=== PATIENT | female | born 2000 | race Caucasian/White ===

== ENCOUNTER 2023-11-07 14:56 | Emergency (ER) | payer MEDICAID, SELFPAY ==
[2023-11-07] VITALS (7 sets, daily range): BP systolic 124–158; BP diastolic 72–91; PULSE 58–84; RESP 16–17; TEMP 36.8–37.2; O2SAT 95–100; BMI 28.5
--- NOTE | ~2023-11-07 | CT_ITS ---
EXAMINATION: CT HEAD WITHOUT CONTRAST CLINICAL INFORMATION: Dizziness, near syncope, numbness/tingling COMPARISON: None available. TECHNIQUE: Contiguous axial imaging was performed from the skull base to vertex without intravenous administration of contrast. This CT examination was performed using dose optimization techniques as appropriate, variously including the following: *Automated exposure control *Adjustment of mA and/or kV according to patient size (this includes techniques or standardized protocols for targeted exams where dose is matched to indication/reason for exam; i.e. extremities or head) *Use of iterative reconstruction technique DLP: 584 mGy-cm FINDINGS: No acute intracranial hemorrhage or infarct. The armstrong-white matter differentiation is preserved. No midline shift or hydrocephalus. No acute extra-axial fluid collections. The osseous structures are unremarkable. No orbital pathology. The paranasal sinuses and mastoid air cells are clear. CT/CT head/brain wo IV con IMPRESSION: No acute intracranial pathology.
--- NOTE | 2023-11-07 15:58 | ED_ITS ---
HPI - Headache General Chief Complaint: Headache Stated Complaint: dizziness/vertigo/valadez per ems Time Seen by Provider: 11/07/23 16:44 Source: patient and RN notes reviewed Mode of arrival: ambulatory Limitations: no limitations History of Present Illness HPI Narrative: This is a 22-year-old female presenting to the emergency department with complaints of vertigo like episode which occurred today. Patient states that while she was walking she suddenly developed a ?electric Jay in her head that occurred approximately 7 times and radiated into her arms and upper body. She states that since she was a teenager she has had similar episodes where she would start to lose her vision and lose track of time. Unclear whether not she would have syncopal episodes. She denies any recent head strike or head injury. Denies fevers, chills, chest pain, shortness of breath, abdominal pain, nausea, vomiting or diarrhea. She states that her symptoms today lasted for several minutes and resolved on its own. She states that she has been seen multiple times for similar symptoms in the past and was told that everything was okay however is concerned as she has never had a CT scan of her head before. Denies any family medical history regards to intracranial processes. Denies drug use. She endorses a slight headache. No vision changes. Denies any other complaints or concerns this time. MD elicited complaint: headache Onset (ago): year(s) Exacerbating factors: none Relieving factors: nothing Associated symptoms: lightheadedness Treatments prior to arrival: none Related Data Allergies Allergy/AdvReac Type Severity Reaction Status Date / Time No Known Allergies Allergy Unverified 05/04/20 18:26 Review of Systems 2 Review of Systems: Yes all other systems are reviewed and are negative Constitutional: Constitutional: Reports as per [facility] Social History Social History Advance Directives: No Advance Directives Information Provided: No Physical Exam 2 Vital Signs: Vital Signs: Last Vital Signs Temp 98.3 F 11/07/23 15:56 Pulse 58 11/07/23 17:19 Resp 16 11/07/23 15:56 BP 134/81 11/07/23 17:19 Pulse Ox 100 11/07/23 15:56 O2 Del Method Room Air 11/07/23 15:56 BMI result Body Mass Index 28.5 Const: General: cooperative, comfortable and no acute distress O rientation/consciousness: patient oriented x3 Limitations: no limitations HEENT: Head: Yes normal to inspection, Yes normocephalic and Yes atraumatic Ears: hearing grossly normal bilaterally General nose exam: Normal external nose present Face and sinus: Yes normal facial exam Mouth: Normal oral and palatal mucosa present, oropharynx normal and moist mucous membranes Throat: Yes posterior oropharynx normal Eyes: General: appearance normal, both eyes and all related structures E yelids: Yes eyelids normal Conjunctivae: conjunctivae normal Sclerae: s clerae normal Pupils: Equal, round and reactive pupils present EOM: EOMs intact bilaterally Neck: Neck: Yes normal visual inspection, Yes full ROM and Yes no lymphadenopathy Lymphatic: no lymphadenopathy noted Chest: Chest palpation & inspection: normal inspection of the chest Resp: Effort & Inspection: normal respiratory effort and able to speak in complete sentences Auscultation: clear to auscultation bilaterally, no crackles, no rales, no rhonchi and no wheezes Cardio: Rate: regular rate Rhythm: regular rhythm Heart sounds: S1 normal heart sound present and S2 normal heart sound present GI: Inspection: Yes normal to inspection Skin: General skin exam: no rashes or lesions noted Trauma: no lacerations or abrasions Wounds: no wounds Neuro: General: patient oriented x3 and moves all extremities Cranial nerves: Yes Equal, round and reactive pupils present Cognition (Neuro): n ormal cognition Gait exam (Neuro): Normal gait present Motor exam (neuro): 5/5 motor strength present throughout Extrem: General: Yes normal to inspection Right upper extremity: normal to inspection Left upper extremity: normal to inspection Right lower extremity: normal to inspection Left lower extremity: normal to inspection Course Course Course Narrative: This is a rapid medical exam: Additional HPI, ROS, PE not included below will be deferred to primary provider. [place] an electrical jolt from her head into her arms. Started when she was walk then happened again she was moving something. Happened multiple times but not in the last two hours. hx: vertigo Reevaluation(s) Reevaluation #1: Patient feeling much better after IV fluids. Repeat orthostatics reveal that she has no longer orthostatic. CT head without any abnormalities. Workup today reassuring. Discussed findings with patient. Encouraged to follow-up with primary care physician regarding her symptoms. She understands and agrees with plan. Patient given return precautions. Patient stable for discharge. Time: 21:00 Medications Administered Discontinued Medications Generic Name Dose Route Start Last Admin Trade Name Mica PRN Reason Stop Dose Admin Sodium Chloride 1,000 mls @ 999 mls/hr 11/07/23 17:56 11/07/23 18:42 Ns IV 11/07/23 18:56 999 mls/hr .Q1H1M ONE Administration Medical Decision Making Medical Decision Making [facility] Narrative: This is a 22-year-old female presenting to the emergency department with complaints of shocking sensation into her head. Patient reports that she has had problems since she was 16 in regards to near syncopal episodes. She has been to the emergency room multiple times previously at other hospitals for near syncopal episodes without any acute findings. Patient requesting CT of her head as this has never been performed. Given near syncopal episodes, will obtain basic labs, for this static vital signs, CT head. Plan: Labs, CT head, EKG, orthostatic vitals Differential Diagnosis Differential Diagnoses: The differential diagnosis associated with the presentation includes arrythmia, orthostatic vitals, near syncope, electrolyte abnormality Admission/Observation Consideration of admission/observation: Escalation of care including admission/observation considered Escalation of care including admission/observation considered however given workup today not warranted at this time. Lab Data [facility] Lab Attestation statement: I reviewed the patient's lab results. No leukocytosis, stable H&H, chemistry within normal limits 11/07/23 16:18 11/07/23 16:18 Labs: Lab Results 11/07/23 Range/Units 16:18 WBC 8.6 (4.8-10.8) X10*3/uL RBC 4.84 (4.20-5.50) X10*6/uL Hgb 14.2 (12.0-16.0) g/dl Hct 43.0 (37.0-47.0) % MCV 88.8 (80.0-98.0) fL MCH 29.3 (27.0-33.0) pg MCHC 33.0 (31.0-35.0) g/dl RDW 12.2 (11.0-16.0) % Plt Count 279 (160-400) X10*3/uL MPV 9.5 (9.4-12.3) fL Immature Gran % (Auto) 0.2 (0.0-0.4) % Neut % (Auto) 47.2 (45-73) % Lymph % (Auto) 40.7 H (20-40) % [place] % (Auto) 10.6 (2-11) % Eos % (Auto) 0.5 (0-4) % Baso % (Auto) 0.8 (0-2) % Lymph # (Auto) 3.5 (1.2-4.9) X10*3/uL [place] # (Auto) 0.9 (0.1-1.2) X10*3/uL Eos # (Auto) 0.0 (0.0-0.4) X10*3/uL Baso # (Auto) 0.1 (0.0-0.2) X10*3/uL Abs Immat Gran (auto) 0.02 (0.00-0.03) X10*3/uL Absolute Neuts (auto) 4.1 (2.0-8.3) x10*3/uL Absolute Nucleated RBC 0.000 (0.0-0.012) X10*3/uL Nucleated RBC % (auto) 0.0 (0.0-0.2) /100WBC Sodium 137 (135-145) mmol/L Potassium 4.6 (3.3-5.1) mmol/L Chloride 108 (96-108) mmol/L Carbon Dioxide 20 L (22-29) mmol/L Anion Gap 14 (12-20) BUN 10 (9-16) mg/dL Creatinine 0.65 (0.5-1.4) mg/dL Estim Creat Clear Calc 126.1 Estimated GFR > 60 Random Glucose 75 (60-115) mg/dL Calcium 9.4 (8.4-10.2) mg/dL Total Bilirubin 0.8 (0.0-1.0) mg/dL AST 16 (5-31) U/L ALT 12 (0-31) U/L Alkaline Phosphatase 94 (39-117) U/L Total Protein 7.6 (6.5-8.0) g/dL Albumin 4.4 (3.5-5.0) g/dL Independent Interpretation I performed an independent interpretation of an: EKG Radiology Impression Discussion of test interpretation with radiology: I have reviewed the radiologist's reading. Radiologist Impression: FINDINGS: No acute intracranial hemorrhage or infarct. The armstrong-white matter differentiation is preserved. No midline shift or hydrocephalus. No acute extra-axial fluid collections. The osseous structures are unremarkable. No orbital pathology. The paranasal sinuses and mastoid air cells are clear. CT/CT head/brain wo IV con IMPRESSION: No acute intracranial pathology. Dictated By: Sinai Lei MD Signed By: <Electronically dexter Discharge Plan Discharge Clinical Impression: Orthostatic hypotension, Near syncope Headache Qualifiers: Headache type: unspecified Patient Disposition: Home, Self-Care Instructions: Syncope (ED), Dizziness (ED), General Headache (ED) Additional Instructions: Your seen in the emergency department due to near syncopal episode. Your lab work was reassuring. You had something called orthostatic hypotension which is a drop in blood pressure with positional changes. This was resolved with IV fluids. It is very important that you follow-up with your primary care physician, call on Friday to make an appointment. If any new or worsening symptoms occur including but not limited to worsening headaches, dizziness, syncopal episodes, chest pain, shortness of breath, please return for re-evaluation.
--- NOTE | 2023-11-07 16:21 | MHC.EDTECH ---
PATIENT BLOOD DRAWN AND SENT TO LAB .
[2023-11-07 16:23] LABS: MANUAL DIFF FLAG NO
[2023-11-07 16:24] LABS: Basophils Absolute Auto 0.1 X10*3/uL (0.0-0.2); Basophils Percent Auto 0.8 % (0-2); Eosinophils Percent Auto 0.5 % (0-4); Hemoglobin 14.2 g/dl (12.0-16.0); Imm Gran Abs Auto 0.02 X10*3/uL (0.00-0.03); Imm Gran Pct Auto 0.2 % (0.0-0.4); Lymphocytes Absolute Auto 3.5 X10*3/uL (1.2-4.9); Lymphocytes Percent Auto 40.7 % (20-40); Mean Corpuscular Hemoglobin 29.3 pg (27.0-33.0); Mean Corpuscular Volume 88.8 fL (80.0-98.0); Mean Platelet Volume 9.5 fL (9.4-12.3); Monocytes Absolute Auto 0.9 X10*3/uL (0.1-1.2); Monocytes Percent Auto 10.6 % (2-11); Neutrophils Absolute Auto 4.1 x10*3/uL (2.0-8.3); Neutrophils Percent Auto 47.2 % (45-73); Platelet Count 279 X10*3/uL (160-400); Red Blood Count 4.84 X10*6/uL (4.20-5.50); Red Cell Distribution Width 12.2 % (11.0-16.0); White Blood Count 8.6 X10*3/uL (4.8-10.8)
[2023-11-07 16:38] LABS: Alanine Aminotransferase 12 U/L (0-31); Albumin Level 4.4 g/dL (3.5-5.0); Alkaline Phosphatase 94 U/L (39-117); Anion Gap 14 (12-20); Aspartate Amino Transferase 16 U/L (5-31); Bilirubin Total 0.8 mg/dL (0.0-1.0); Blood Urea Nitrogen 10 mg/dL (9-16); Calcium 9.4 mg/dL (8.4-10.2); Carbon Dioxide 20 mmol/L (22-29); Chloride 108 mmol/L (96-108); Creatinine Clr Calc Pharmacy 126.1; Estimated Glomerular Filt Rate > 60; Glucose Random 75 mg/dL (60-115); Potassium 4.6 mmol/L (3.3-5.1); Sodium 137 mmol/L (135-145); Total Protein 7.6 g/dL (6.5-8.0)
[2023-11-07] MEDS: 0.9 % Sodium Chloride 1,000 ML 999 ML IV (18:42)
--- NOTE | 2023-11-07 18:42 | PC.NURSE ---
#20 IV placed in L-wrist and IV fluids running
--- NOTE | 2023-11-07 21:06 | ECG_ITS ---
Test Reason : NEAR SYNCOPE Blood Pressure : / mmHG Vent. Rate : 053 BPM Atrial Rate : 053 BPM P-R Int : 112 ms QRS Dur : 092 ms QT Int : 420 ms P-R-T Axes : 022 009 002 degrees QTc Int : 394 ms Sinus bradycardia Minimal voltage criteria for LVH, may be normal variant ( R in aVL ) Borderline ECG No previous ECGs available Referred By: Sarah Aguirre Electronically Signed By:ATUL ROB
== END 2023-11-08 19:45 | disposition home or self-care (01) ==
PROVIDERS: Nurse Practitioner Family; Emergency Provider Emergency Medicine
DX: I95.1 Orthostatic hypotension (principal); R51.9 Headache, unspecified
CPT/HCPCS: 36415; 70450; 80053; 85025; 93005; 96360; 96361; 99284

== ENCOUNTER → 2023-11-07 21:06 | Outpatient (BNV) | payer MEDICAID, SELFPAY | PROVIDERS: Emergency Provider Emergency Medicine; Visit Provider Internal Medicine | DX: R00.1 Bradycardia, unspecified (principal) | CPT/HCPCS: 93010 ==